=== PATIENT | female | born 1995 | race Caucasian/White ===

== ENCOUNTER 2021-02-11 07:00 | Day surgery (SDC) | payer MEDICAID, SELFPAY ==
[~2021-02-11] VITALS: Ht 157.5 cm; Wt 54.4 kg
[2021-02-11 08:24] LABS: HCG,QUAL RESULT NEGATIVE (NEGATIVE)
[2021-02-11] MEDS ORDERED: METOCLOPRAMIDE HCL 10 MG/2 ML VIAL IVP PRN (10:00)
[2021-02-11] MEDS ORDERED: MEPERIDINE HCL/PF 25 MG/ML DISP.SYRIN IVP PRN (10:00)
[2021-02-11] MEDS ORDERED: HYDROmorphone 1 MG/ML INJ. CARTRIDGE IVP PRN ×2 (10:00)
[2021-02-11] MEDS ORDERED: LR 1,000 ML IV SCH (10:00)
[2021-02-11] MEDS ORDERED: LABETALOL 100 MG/ 20ML VIAL IVP PRN (10:00)
[2021-02-11] MEDS ORDERED: MIDAZOLAM HCL 2 MG/2 ML VIAL (VERSED) IVP PRN (10:00)
[2021-02-11] MEDS ORDERED: LIDOCAINE/EPI 2% 1:100000 20 ML VIAL INJ ONE (11:59)
[2021-02-11] MEDS ORDERED: PROPOFOL 200MG/ 20ML VIAL (DIPRIVAN) IV ONE (11:59)
[2021-02-11] MEDS ORDERED: DEXAMETHASONE SOD PHOSPHATE 4 MG/ML VIAL ONE (11:59)
[2021-02-11] MEDS ORDERED: ROCURONIUM BROMIDE 10 MG/ML (ZEMURON) ONE (11:59)
[2021-02-11] MEDS ORDERED: LR 1,000 ML IV.SOLN IV ONE (11:59)
[2021-02-11] MEDS ORDERED: MIDAZOLAM HCL 5 MG/ML VIAL (VERSED) IV ONE (11:59)
[2021-02-11] MEDS ORDERED: NS 1000 ML IV.SOLN IV ONE (11:59)
[2021-02-11] MEDS ORDERED: DESFLURANE 15 MIN GAS INH ONE (11:59)
[2021-02-11] MEDS ORDERED: ONDANSETRON HCL 4 MG/2 ML VIAL ONE (11:59)
[2021-02-11] MEDS ORDERED: BACITRACIN 1 GM OINT TP ONE (11:59)
[2021-02-11] MEDS ORDERED: fentaNYL CITRATE 250 MCG/5 ML AMP ONE (11:59)
[2021-02-11] MEDS ORDERED: ACETAMINOPHEN I.V. 1000 MG 100 ML IV ONE (14:01)
[2021-02-11 14:02] VITALS: BP_SYST 132
== END 2021-02-11 13:55 | disposition home or self-care (01) ==
LOC: SDS 07:00
PROVIDERS: ATTEND Otolaryngology
DX: J34.89 Other specified disorders of nose and nasal sinuses (principal); D38.5 Neoplasm of uncertain behavior of other respiratory organs; J34.2 Deviated nasal septum; J30.1 Allergic rhinitis due to pollen; F41.9 Anxiety disorder, unspecified; K21.9 Gastro-esophageal reflux disease without esophagitis; Z20.822 Contact with and (suspected) exposure to COVID-19; Z79.899 Other long term (current) drug therapy
CPT/HCPCS: 30140; 30520; 84703; 88304; 88311; J0131; J1100; J2250; J2405; J2704; J3010; J3465; J7030; J7120; U0003